=== PATIENT | male | born 1985 | race Caucasian/White ===

== ENCOUNTER 2017-02-15 21:37 | Emergency (ER) | payer MEDICAID ==
[2017-02-15 21:44] VITALS: BP 142/96
== END 2017-02-15 22:26 | disposition home or self-care (01) ==
LOC: ED 21:37
DX: S39.012A Strain of muscle, fascia and tendon of lower back, initial encounter (principal); M54.32 Sciatica, left side; I10 Essential (primary) hypertension; Z79.899 Other long term (current) drug therapy; X58.XXXA Exposure to other specified factors, initial encounter; Y93.89 Activity, other specified; Y92.89 Other specified places as the place of occurrence of the external cause; Y99.8 Other external cause status
CPT/HCPCS: J1885